=== PATIENT | male | born 1970 | race Caucasian/White ===

== ENCOUNTER 2019-09-19 19:01 | Observation (INO) | payer BC ==
[2019-09-19] MEDS ORDERED: ASPIRIN EC 81 MG TAB PO ONE (19:12)
[2019-09-19 19:32] VITALS: BMI 31.9
[2019-09-19 19:39] LABS: Absolute Lymphocytes (CBC) 2.6 K/uL (0.7-4.9); Basophils % 0.8 % (0-1.3); Lymphocytes % 30.6 % (15.3-44.8); MPV 8.4 fL (7.6-11.3); RBC Red Blood Cell Count 5.51 M/uL (4.33-5.43)
--- NOTE | 2019-09-19 19:55 | RAD REPORT ---
EXAM DESCRIPTION: RAD - Chest Pa And Lat (2 Views) - 09/19/2019 7:47 pm CLINICAL HISTORY: chest pain Chest pain. COMPARISON: Chest Single View dated 08/19/2015; CHEST SINGLE VIEW dated 12/19/2012; CHEST PA AND LAT 2 VIEW dated 06/07/2011 FINDINGS: The lungs are clear. The heart is normal in size. No displaced fractures. IMPRESSION: No acute or concerning finding suspected.
[2019-09-19 20:00] LABS: ALT/SGPT 44 U/L (12-78); AST/SGOT 25 U/L (15-37); Albumin 3.7 g/dL (3.4-5.0); Alkaline Phosphatase 102 U/L (45-117); BUN Blood Urea Nitrogen 20 mg/dL (7-18); Bicarbonate 28 mmol/L (21-32); Bilirubin Total 0.5 mg/dL (0.2-1.0); CKMB Creatine Kinase MB < 1.0 ng/mL (0.3-3.6); Creatine Phosphokinase 86 U/L (39-308); Glucose Level 90 mg/dL (74-106); Magnesium 2.3 mg/dL (1.8-2.4); Potassium 4.8 mmol/L (3.5-5.1); Protein, Total 7.7 g/dL (6.4-8.2); Sodium Level 140 mmol/L (136-145); Troponin I < 0.02 ng/mL (0.0-0.045)
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
[2019-09-20 08:04] VITALS: O2SAT 94
[2019-09-20] MEDS ORDERED: REGADENOSON 0.4 MG/5 ML SYR IV ONE (08:40)
[2019-09-20] MEDS ORDERED: ASPIRIN EC 81 MG TAB PO SCH (09:00)
--- NOTE | 2019-09-20 09:37 | RAD REPORT ---
EXAM DESCRIPTION: NM - Rest Stress Cardiac Imaging - 09/20/2019 9:18 am CLINICAL HISTORY: Chest pain COMPARISON: Stress cardiac imaging July 2015 TECHNIQUE: The patient was administered approximately 10 mCi of Tc 99m Sestamibi prior to resting SP ECT imaging of the heart. The patient was then administered approximately 30 mCi of Tc 99m Sestamibi following exercise or pharmacologic stress. Multiplanar SPECT images were reviewed. FINDINGS: The end diastolic volume is 107 ml, the end systolic volume is 47 ml, and the ejection fra ction is 56 %. Ventricular volumes and ejection fractions are stable from the 2016 study. No stress-induced ischemic changes are identifiable. There is a small focus of diminished activity in the midportion anterior wall on both rest and stress imaging. This is suspected to be a minimal focu s of scarring unchanged from 2016. No other significant findings. IMPRESSION: No stress-induced ischemic change identifiable. Probable minimal focus of scarring in the midportion anterior wall left ventricle unchanged from 2016 . Ventricular volumes and ejection fractions are normal range. These values are stable from 2016.
--- NOTE | 2019-09-20 09:45 | EKG ---
Test Date: 2019-09-19 Test Time: 19:36:48 Human Service Specialist: RT Kenney MEASUREMENT RESULTS: Intervals: Rate: 71 ME: 144 QRSD: 90 QT: 370 QTc: 402 [place]: P: 41 ME: 144 QRS: -3 T: 21 INTERPRETIVE STATEMENTS: Normal sinus rhythm Normal ECG Compared to ECG 08/19/2015 19:29:47 No significant changes Electronically Signed On 09-20-19 09:45:20 CDT by Don Sanchez
--- NOTE | 2019-09-20 12:08 | ECHO ---
HEIGHT: 5 ft 7 in WEIGHT: 204 lb 1.6 oz DATE OF STUDY: 09/20/[address]: Mika Cerrato MD 2-DIMENSIONAL: YES M.MODE: YES DOPPLER: YES COLOR FLOW: YES TDS: NO PORTABLE: NO DEFINITY: NO BUBBLE STUDY: NO DIAGNOSIS: CHEST PAIN CARDIAC HISTORY: CATHERIZATION: NO SURGERY: NO PROSTHETIC VALVE: NO PACEMAKER: NO MEASUREMENTS (cm) DIASTOLIC (NORMALS) SYSTOLIC (NORMALS) IVSd 1.2 (0.6-1.2) LA Diam 3.7 (1.9-4.0) LVEF 66% LVIDd 4.5 (3.5-5.7) LVIDs 2.9 (2.0-3.5) %FS 36% LVPWd 1.1 (0.6-1.2) Ao Diam 3.3 (2.0-3.7) 2 DIMENSIONAL ASSESSMENT: RIGHT ATRIUM: NORMAL LEFT ATRIUM: NORMAL RIGHT VENTRICLE: NORMAL LEFT VENTRICLE: NORMAL TRICUSPID VALVE: NORMAL MITRAL VALVE: NORMAL PULMONIC VALVE: MILD PULMONIC INSUFFICIENCY AORTIC VALVE: NORMAL PERICARDIAL EFFUSION: NONE AORTIC ROOT: NORMAL LEFT VENTRICULAR WALL MOTION: NORMAL. DOPPLER/COLOR FLOW: NOMRAL. COMMENTS: NORMAL LEFT VENTRICULAR SYSTOLIC AND DIASTOLIC FUNCTION. EJECTION FRACTION 55-60%. NORMAL SCIENCE CENTER DISPLAY BUILDER: CORTNEY CABRAL
--- NOTE | 2019-09-20 12:11 | TREADPHA ---
DX: CHEST PAIN Date of Study: 09/20/2019 Ht: 5' 7 " Wt: 204 lb 1.6 oz Consulting Physician: ANKITA MEDICATIONS: ASPIRIN. HISTORY: PHYSICIAL EXAMINATION: RESTING B.P.: 114/72 RESTING H.R.: 62 RESTING EKG: NORMAL SINUS RHYTHM, NO SIGNIFICANT ABNORMALITIES. PROTOCOL: LEXSISCAN EXERCISE TIME: 3:30 B.P. AT [place] STRESS: 113/76 IMPRESSION: LEXISCAN AND CARDIOLITE INJECTED PER PROTOCOL. PLEASE NUCLEAR MEDICINE REPORT. NORMAL ST AND T WAVE CHANGES WITH LEXISCAN.
[2019-09-20 12:46] VITALS: BP 116/75; TEMP 98.2
--- NOTE | 2019-09-22 23:13 | DS ---
Date of Discharge: 09/20/2019 Disposition: Discharged to go home. Physical Examination: HEENT: Unremarkable. Lungs: Clear to auscultation. Heart: Heart sounds normal. Abdomen: Soft, bowel sounds normal. No guarding, rigidity, tenderness, or distention. Extremities: No leg edema. Discharge Medications And Instructions: 1. Continue all prior home medications. 2. Take meloxicam 15 mg p.o. daily with food. 3. Follow up at my office in 2 weeks. Hospital Course: A 49-year-old male patient admitted to the hospital directly with chest pain and shortness of breath complaint. Please see dictated H and P for more information. After patient was admitted to the hospital, routine chest x-ray, EKG, and routine labs done. All the results came back negative. Cardiac enzymes were negative. Chest x-ray was unremarkable. EKG was normal sinus rhythm, normal EKG. Patient had an echocardiogram done, which showed normal ejection fraction. Lexiscan stress test, which came back negative for stress- induced ischemia. So, patient was discharged to go home in stable condition. Chances are likely that he has musculoskeletal pain and we will see how he responds to this anti-inflammatory medication. Final Diagnoses: 1. Chest pain. 2. Gastroesophageal reflux disease. 3. Hyperlipidemia. NIDA/MODL Voice ID: [id number] Report ID: [id number] ROSETTE
== END 2019-09-20 16:25 | disposition home or self-care (01) ==
LOC: 2ND 19:01
PROVIDERS: ADMIT Internal Medicine; ATTEND Internal Medicine
DX: R07.9 Chest pain, unspecified (principal); K21.9 Gastro-esophageal reflux disease without esophagitis; E78.5 Hyperlipidemia, unspecified; R06.02 Shortness of breath; Z88.0 Allergy status to penicillin; Z83.3 Family history of diabetes mellitus
CPT/HCPCS: 93005; 93017; 93306; 85025; 36415; 83735; 82550; 80061; 84443; 84484; 82553; 80053; 71046; 78452; G0103; J2785; A9500; G0378 ×3

== ENCOUNTER 2023-11-17 17:20 | Emergency (ER) | payer BC, OTHER ==
--- NOTE | 2023-11-17 18:11 | RAD REPORT ---
EXAM DESCRIPTION: Patsy Single View11/17/2023 6:04 pm CLINICAL HISTORY: Chest pain COMPARISON: 2019 FINDINGS: The lungs appear clear of acute infiltrate. The heart is normal size IMPRESSION: No acute abnormalities displayed
[2023-11-17 18:18] LABS: Absolute Eosinophils 0.1 K/uL (0-0.5); Absolute Lymphocytes (CBC) 1.5 K/uL (0.7-4.9); Absolute Monocytes 0.7 K/uL (0.1-1.3); Absolute Neutrophil 4.8 K/uL (1.8-8.0); Basophils % 0.5 % (0-1.3); Eosinophils % 0.7 % (0-4.4); Hemoglobin 15.2 g/dL (13.6-17.9); Lymphocytes % 20.5 % (15.3-44.8); MCH 28.5 pg (27.0-35.0); MCHC 33.8 g/dL (32.0-36.0); MCV 84.2 fL (80-100); MPV 7.6 fL (7.6-11.3); Monocytes % 10.4 % (3.3-12.3); Neutrophils % 67.9 % (41.7-73.7); Nucleated Red Blood Cells % 0.1 % (0-0); Platelets 283 thou/uL (152-406); RBC Red Blood Cell Count 5.34 M/uL (4.33-5.43); Red Cell Distribution Width 14.4 % (12.1-15.2)
[2023-11-17 18:35] LABS: Albumin 3.5 g/dL (3.4-5.0); Albumin/Globulin Ratio 0.9 (1.1-1.8); Bilirubin Direct 0.2 mg/dL (0-0.2); Bilirubin Indirect, Calculated 0.6 mg/dL (0.2-0.8); Bilirubin Total 0.8 mg/dL (0.2-1.0); Globulin 3.8 g/dL (2.3-3.5); Magnesium 2.6 mg/dL (1.6-2.4); Protein, Total 7.3 g/dL (6.4-8.2); Troponin High Sensitivity 3.8 pg/mL (<58.9)
--- NOTE | 2023-11-17 18:51 | EDPHYS ---
Physician Documentation [facility] Name: Miles Canela Age: 53 yrs Sex: Male : 1970 Arrival Date: 11/17/2023 Time: 17:20 Bed 19 Private MD: ED Physician Aramis Rosales HPI: 11/16 17:50 This 53 yrs old Male presents to ER via Ambulatory with complaints of Numbness Of Arm. rt 17:50 Patient presents to the ED with reported numbness on the side of his chest he states rt radiates to his arm when he pushes down on the chest. Denies any other numbness, weakness. This started about 1 when he was sitting down. Patient states that something similar happened several years ago with a negative workup. He denies other acute complaints at this time, symptoms are mild in severity, no other aggravating or alleviating factors. Historical: - Allergies: 17:27 Amoxicillin; aa5 - Home Meds: 17:27 atorvastatin oral [Active]; aa5 - PMHx: 17:27 Hypercholesterolemia; aa5 - PSHx: 17:27 left leg; lip as a child; Vasectomy; aa5 - Immunization history:: Adult Immunizations unknown. - Infectious Disease History:: Denies. - Social history:: Smoking status: Patient denies any tobacco usage or history of. - Family history:: not pertinent. ROS: 17:50 Constitutional: Negative for fever, chills, and weight loss, Cardiovascular: Negative rt for chest pain, palpitations, and edema, Respiratory: Negative for shortness of breath, cough, wheezing, and pleuritic chest pain, Abdomen/GI: Negative for abdominal pain, nausea, vomiting, diarrhea, and constipation, MS/Extremity: Negative for injury and deformity, Skin: Negative for injury, rash, and discoloration, 17:50 Neuro: Positive for numbness, Negative for weakness, Exam: 17:50 Constitutional: This is a well developed, well nourished patient who is awake, alert, rt and in no acute distress. Head/Face: Normocephalic, atraumatic. Chest/axilla: Normal chest wall appearance and motion. Nontender with no deformity. No lesions are appreciated. Cardiovascular: Regular rate and rhythm with a normal S1 and S2. No gallops, murmurs, or rubs. Normal PMI, no JVD. No pulse deficits. Respiratory: Lungs have equal breath sounds bilaterally, clear to auscultation and percussion. No rales, rhonchi or wheezes noted. No increased work of breathing, no retractions or nasal flaring. Abdomen/GI: Soft, non-tender, with normal bowel sounds. No distension or tympany. No guarding or rebound. No evidence of tenderness throughout. Skin: Warm, dry with normal turgor. Normal color with no rashes, no lesions, and no evidence of cellulitis. MS/ Extremity: Pulses equal, no cyanosis. Neurovascular intact. Full, normal range of motion. Psych: Awake, alert, with orientation to person, place and time. Behavior, mood, and affect are within normal limits. 17:50 ECG was reviewed by the Attending Physician. 17:50 Neuro: Speech normal, cranial nerves II through XII intact, strength and sensation intact in upper and lower extremities., Vital Signs: 17:26 BP 133 / 85; Pulse 96; Resp 16 S; Temp 97.8(TE); Pulse Ox 97% on R/A; Weight 92.99 kg aa5 (R); Height 5 ft. 7 in. (R); 17:45 Pulse 77; Resp 14; Pulse Ox 97% on R/A; nj1 18:45 BP 121 / 82; Pulse 82; Resp 19; Pulse Ox 95% ; nj1 17:26 Body Mass Index 32.11 (92.99 kg, 170.18 cm) aa5 MDM: 17:29 Patient medically screened. rt 18:52 Differential diagnosis: Paresthesia, ACS, chest wall pain. Data reviewed: vital signs, rt nurses notes, lab test result(s), EKG, radiologic studies. Consideration of Admission/Observation Escalation of care including admission/observation considered. Symptoms not consistent with acute CVA, he has no focal neurologic deficits. He denies any pain and has a negative cardiac workup, given chronicity of symptoms, 1 set of enzymes is sufficient to rule out an acute coronary syndrome. No indications for admission at this time, patient comfortable discharge, return precautions were discussed. Patient to follow-up with primary care.. Independent interpretation of the following test(s) in the Emergency Department X-Ray: My interpretation is No consolidation seen on interpretation of x-ray images. Test considered but Not performed: CT: No focal neurodeficits, do not believe will get CT scan indicated this time.. Counseling: I had a detailed discussion with the patient and/or guardian regarding the historical points, exam findings, and any diagnostic results supporting the discharge/admit diagnosis, lab results, radiology results, the need for outpatient follow up, to return to the emergency department if symptoms worsen or persist or if there are any questions or concerns that arise at home. Response to treatment: the patient's symptoms have mildly improved after treatment. 11/16 17:38 Order name: Basic Metabolic Panel; Complete Time: 18:36 rt 11/16 17:38 Order name: CBC with Diff; Complete Time: 18:36 rt 11/16 17:38 Order name: LFT's; Complete Time: 18:36 rt 11/16 17:38 Order name: Magnesium; Complete Time: 18:36 rt 11/16 17:38 Order name: Troponin HS; Complete Time: 18:36 rt 11/16 17:38 Order name: XRAY Chest (1 view); Complete Time: 18:12 rt 11/16 17:38 Order name: EKG; Complete Time: 17:39 rt 11/16 17:38 Order name: Cardiac monitoring; Complete Time: 17:46 rt 11/16 17:38 Order name: EKG - Nurse/Tech; Complete Time: 17:46 rt 11/16 17:38 Order name: IV Saline Lock; Complete Time: 18:14 rt 11/16 17:38 Order name: Labs collected and sent; Complete Time: 18:14 rt 11/16 17:38 Order name: O2 Per Protocol; Complete Time: 17:46 rt 11/16 17:38 Order name: O2 Sat Monitoring; Complete Time: 17:46 rt EC:50 Rate is 81 beats/min. Rhythm is regular, Normal Sinus Rhythm with No ectopy. QRS [place] rt is Normal. NE interval is normal. QRS interval is normal. QT interval is normal. No Q waves. T waves are Normal. No ST changes noted. Interpreted by me. Administered Medications: No medications were administered Disposition Summary: 11/17/23 18:51 Discharge Ordered Notes: Location: Home rt Problem: new rt Symptoms: have improved rt Condition: Stable rt Diagnosis - Paresthesia of skin rt Followup: rt - With: Private Physician - When: 2 - 3 days - Reason: Discharge Instructions: - Discharge Summary Sheet rt - Paresthesia rt Forms: - Medication Reconciliation Form rt - Antibiotic Education rt - Prescription Opioid Use rt - Patient Portal Instructions rt - Leadership Thank You Letter rt Signatures: Dispatcher [employer] Crissy Wray, RN RN aa5 Aramis Rosales MD MD rt Corrections: (The following items were deleted from the chart) 17:39 17:39 BASIC METABOLIC PANEL+C.LAB.BRZ ordered. EDMS EDMS 17:39 17:39 CBC+H.LAB.BRZ ordered. EDMS EDMS 17:39 17:39 HEPATIC FUNCTION+C.LAB.BRZ ordered. EDMS EDMS 17:39 17:39 MAGNESIUM+C.LAB.BRZ ordered. EDMS EDMS 17:39 17:39 Troponin High Sensitivity+C.LAB.BRZ ordered. EDMS EDMS
--- NOTE | 2023-11-17 18:51 | ER ---
Nurse's Notes [facility] Name: Miles Canela Age: 53 yrs Sex: Male : 1970 Arrival Date: 11/17/2023 Time: 17:20 Bed 19 Private MD: Diagnosis: Paresthesia of skin Presentation: 11/16 17:26 Chief complaint: Patient states: numbness to left side of chest radiating down left arm aa5 that began 1300. Coronavirus screen: At this time, the client does not indicate any symptoms associated with coronavirus-19. Ebola Screen: Patient denies travel to an Ebola-affected area in the 21 days before illness onset. Initial Sepsis Screen: Does the patient meet any 2 criteria? No. Patient's initial sepsis screen is negative. Does the patient have a suspected source of infection? No. Patient's initial sepsis screen is negative. Risk Assessment: Do you want to hurt yourself or someone else? Patient reports no desire to harm self or others. Onset of symptoms was November 17, 2023. 17:26 Acuity: LUBNA 3 aa5 17:26 Method Of Arrival: Ambulatory aa5 Historical: - Allergies: 17:27 Amoxicillin; aa5 - Home Meds: 17:27 atorvastatin oral [Active]; aa5 - PMHx: 17:27 Hypercholesterolemia; aa5 - PSHx: 17:27 left leg; lip as a child; Vasectomy; aa5 - Immunization history:: Adult Immunizations unknown. - Infectious Disease History:: Denies. - Social history:: Smoking status: Patient denies any tobacco usage or history of. - Family history:: not pertinent. Screenin:[facility] ED Fall Risk Assessment (Adult) History of falling in the last 3 months, nj1 including since admission No falls in past 3 months (0 pts) Confusion or Disorientation No (0 pts) Intoxicated or Sedated No (0 pts) Impaired Gait No (0 pts) Mobility Assist Device Used No (0 pt) Altered Elimination No (0 pt) Score/Fall Risk Level 0 - 2 = Low Risk Oriented to surroundings, Maintained a safe environment, Hourly rounding (assess needs \T\ fall precautionary measures) done. Abuse screen: Denies threats or abuse. Denies injuries from another. Nutritional screening: No deficits noted. Tuberculosis screening: No symptoms or risk factors identified. Assessment: 17:50 General: Appears in no apparent distress. comfortable, Behavior is calm, cooperative, nj1 appropriate for age. Pain: Denies pain. Neuro: Level of Consciousness is awake, alert, obeys commands, Oriented to person, place, time, situation, Surveyor Helper Rod are equal bilaterally Moves all extremities. Gait is steady, Speech is normal, Facial symmetry appears normal, Reports numbness in chest and left arm. Cardiovascular: Patient's skin is warm and dry. Cardiovascular: Denies chest pain. Respiratory: Airway is patent Respiratory effort is even, unlabored. 18:45 Reassessment: Patient appears in no apparent distress at this time. Patient and/or nj1 family updated on plan of care and expected duration. Pain level reassessed. Patient is alert, oriented x 3, equal unlabored respirations, skin warm/dry/pink. Vital Signs: 17:26 BP 133 / 85; Pulse 96; Resp 16 S; Temp 97.8(TE); Pulse Ox 97% on R/A; Weight 92.99 kg aa5 (R); Height 5 ft. 7 in. (R); 17:45 Pulse 77; Resp 14; Pulse Ox 97% on R/A; nj1 18:45 BP 121 / 82; Pulse 82; Resp 19; Pulse Ox 95% ; nj1 17:26 Body Mass Index 32.11 (92.99 kg, 170.18 cm) aa5 ED Course: 17:22 Patient arrived in ED. ra3 17:24 Aramis Rosales MD is Attending Physician. rt 17:26 Arm band placed on. aa5 17:27 Triage completed. aa5 17:30 Patient has correct armband on for positive identification. Bed in low position. Call nj1 light in reach. Provided Education on: call light, fall precautions. 17:30 Client placed on continuous cardiac and pulse oximetry monitoring. NIBP monitoring nj1 applied. playground monitor on. 17:42 Margarita Tripp, JESSY is Primary Nurse. nj1 18:06 XRAY Chest (1 view) In Process Unspecified. EDMS 18:15 Inserted saline lock: 20 gauge in left antecubital area, using aseptic technique. Blood kj2 collected. 18:56 No provider procedures requiring assistance completed. IV discontinued, intact, nj1 bleeding controlled, Pressure dressing applied. Administered Medications: No medications were administered Medication: 18:59 VIS not applicable for this client. nj1 Outcome: 18:51 Discharge ordered by . rt 18:56 Discharged to home ambulatory, nj1 18:56 Condition: stable 18:56 Discharge instructions given to patient, Instructed on discharge instructions, follow up and referral plans. Demonstrated understanding of instructions, follow-up care, 19:05 Patient left the ED. nj1 Signatures: Dispatcher [employer] EDMS Crissy Marshall, RN RN aa5 Aramis Rosales MD MD rt Margarita Tripp RN RN nj1 Rivka Zafar ra3 Ellen Gomez, RN RN kj2
[2023-11-17 19:17] VITALS: TEMP 97.8
[2023-11-17 19:41] VITALS: BP 121/82; O2SAT 95
--- NOTE | 2023-11-20 14:22 | EKG ---
Test Date: 2023-11-17 Test Time: 17:39:18 Media Marketing Specialist: MEASUREMENT RESULTS: Intervals: Rate: 81 DE: 140 QRSD: 94 QT: 368 QTc: 427 [place]: P: 32 DE: 140 QRS: -28 T: 31 INTERPRETIVE STATEMENTS: Normal sinus rhythm Normal ECG Compared to ECG 09/19/2019 19:36:48 No significant changes Electronically Signed On 11-20-23 14:16:22 CDT by [place]
== END 2023-11-17 19:05 | disposition home or self-care (01) ==
LOC: ER 17:20
DX: R20.2 Paresthesia of skin (principal); R20.0 Anesthesia of skin; Z88.1 Allergy status to other antibiotic agents
CPT/HCPCS: 36415; 71045; 80048; 80076; 83735; 84484; 85025; 93005; 99284